=== PATIENT | male | born 1975 | race Caucasian/White ===

== ENCOUNTER → 2022-12-21 | Day surgery (SDC) | payer OTHER, MEDICAID ==
[~2022-12-21] MED LIST: Iopamidol-M 300 61% 15 ML VIAL ONE; Lidocaine 1% PF 5 ML VIAL ONE; Sodium Bicarbonate 2.5 MEQ/5 ML VIAL ONE
== END ==
LOC: CSHRAD 09:32
PROVIDERS: ATTEND Neurological Surgery
PROC: B01BYZZ Fluoroscopy of Spinal Cord using Other Contrast (ICD-10-PCS; principal; 2022-12-21)
DX: M48.062 Spinal stenosis, lumbar region with neurogenic claudication (principal); M47.816 Spondylosis without myelopathy or radiculopathy, lumbar region; M47.12 Other spondylosis with myelopathy, cervical region; G43.909 Migraine, unspecified, not intractable, without status migrainosus; I10 Essential (primary) hypertension; J44.9 Chronic obstructive pulmonary disease, unspecified; Z87.891 Personal history of nicotine dependence; Z79.899 Other long term (current) drug therapy
CPT/HCPCS: 62305; 72126; 72129; 72132; Q9967